=== PATIENT | female | born 1955 | race Caucasian/White ===

== ENCOUNTER 2023-03-17 11:19 | Emergency (ER) | payer OTHER ==
[~2023-03-17] VITALS: Ht 170.2 cm; Wt 87.1 kg
[2023-03-17 11:47] VITALS: BP 125/77; PULSE 78; RESP 18; TEMP 97.7; O2SAT 95
[2023-03-17] MEDS ORDERED: KETOROLAC 30 MG/ML VIAL IM ONE (12:35)
[2023-03-17 13:16] LABS: BASOPHILS # (AUTO) 0.1 K/uL (0.00-0.22); BASOPHILS % (AUTO) 1.1 % (0.0-2.0); EOSINOPHILS # (AUTO) 0.1 K/uL (0-0.4); EOSINOPHILS % (AUTO) 1.1 % (0.0-4.0); HEMATOCRIT 38.5 % (36-48); HEMOGLOBIN 12.5 g/dL (12.0-16.0); LYMPHOCYTES # (AUTO) 2.2 K/uL (2.5-16.5); LYMPHOCYTES % (AUTO) 39.4 % (20.5-51.1); MEAN CORPUSCULAR HEMOGLOBIN 26 pg (27-31); MEAN CORPUSCULAR HGB CONC 32 g/dL (33-37); MEAN CORPUSCULAR VOLUME 79.7 fL (80-94); MONOCYTES # (AUTO) 0.2 K/uL (0.8-1.0); MONOCYTES % (AUTO) 4.4 % (1.7-9.3); PLATELET COUNT (AUTO) 265 K/uL (140-450); RED BLOOD CELL COUNT(AUTO) 4.83 MIL/uL (4.20-5.40); RED CELL DISTRIBUTION WIDTH 25.8 % (11.6-13.7); WHITE BLOOD COUNT (AUTO) 5.6 K/uL (4.8-10.8)
[2023-03-17 14:15] LABS: ALANINE AMINOTRANSFERASE 21 U/L (12-78); ALBUMIN 3.4 g/dL (3.4-5.0); ALKALINE PHOSPHATASE 53 U/L (50-136); ANION GAP 14.2 (8-16); ASPARTATE AMINOTRANSFERASE 23 U/L (15-37); CARBON DIOXIDE 27.1 mmol/L (21-32); CHLORIDE 103 mmol/L (98-107); CREATININE 0.8 mg/dL (0.6-1.3); GFR ARICAN-AMERICAN 92 mL/min (>90); GFR NON ARICAN-AMERICAN 76 mL/min (>90); GLUCOSE 113 mg/dL (74-106); MAGNESIUM 2.1 mg/dL (1.8-2.4); POTASSIUM 4.3 mmol/L (3.5-5.1); SODIUM SERUM 140 mmol/L (136-145); TOTAL BILIRUBIN 0.2 mg/dL (0.0-1.0); TOTAL PROTEIN, SERUM 8.6 g/dL (6.4-8.2); UREA NITROGEN, BLOOD 9 mg/dL (7-18)
[2023-03-17] MEDS ORDERED: IBUP-2213 PO (14:23)
== END 2023-03-17 14:33 | disposition home or self-care (01) ==
LOC: MED 11:19
DX: R07.89 Other chest pain (principal); M19.90 Unspecified osteoarthritis, unspecified site; Z88.5 Allergy status to narcotic agent; Z98.890 Other specified postprocedural states
CPT/HCPCS: 36415; 71045; 80053; 83735; 84484; 85025; 93005; 96372; 99285; J1885